=== PATIENT | female | born 1950 | race African-American/Black ===

== ENCOUNTER 2019-10-24 10:31 | Inpatient (IN) | payer OTHER ==
[~2019-10-24] VITALS: Ht 167.6 cm; Wt 78.9 kg
[2019-10-24 11:16] LABS: BG BASE EXCESS 0.8 mmol/L (-2.0-2.0); BG CARBOXYHEMOGLOBIN 0.6 % (0.5-1.5); BG DEOXYHEMOGLOBIN 6.4 % (0.0-5.0); BG FRACTION INSPIRED OXYGEN 100; BG HCO3 ACT 25.2 mmol/L (22.0-26.0); BG METHEMOGLOBIN 0.3 % (0.0-1.5); BG OXYGEN SATURATION 93.5 % (92.0-98.5); BG OXYHEMOGLOBIN 92.7 % (94.0-97.0); BG PCO2 39.7 mmHg (35.0-45.0); BG PH 7.421 (7.350-7.450); BG PO2 67.1 mmHg (75.0-100.0); BG SAMPLE SITE RIGHT BRACHIAL; BG TOTAL HEMOGLOBIN 12.3 g/dL (12.0-18.0); BG VENT MODE MASK - NRB
[2019-10-24 11:54] LABS: HEMATOCRIT. 36.9 % (36.0-48.0); MEAN CORPUSCULAR HEMOGLOBIN 28.9 pg (28.0-32.0); MEAN PLATELET VOLUME 8.9 fl (7.4-10.4); PLATELET 314 x1000/uL (130-400); RED BLOOD CELL COUNT 4.14 mill/uL (4.2-5.4); RED CELL DISTRIBUTION WIDTH 15.7 % (11.6-14.6)
[2019-10-24 12:32] LABS: PLATELET ESTIMATE NORMAL
[2019-10-24] MEDS ORDERED: PIPERACILLIN/TAZ 3.375G PREMIX 50 ML IV ONE (12:45)
[2019-10-24] MEDS ORDERED: VANCOMYCIN 1 G PREMIX 200 ML IV ONE (12:45)
[2019-10-24] MEDS ORDERED: ONDANSETRON HCL 4MG/2ML INJ IV PRN ×2 (13:15→17:15)
[2019-10-24] MEDS ORDERED: ACETAMINOPHEN 325MG TABLET PO PRN ×2 (13:15→17:15)
[2019-10-24 13:18] LABS: CHLORIDE 107 mEq/L (98-107)
[2019-10-24 13:23] LABS: D-DIMER 2.34 mg/L FEU (<0.50); INR 1.1; PROTHROMBIN TIME 11.1 sec (9.6-11.0)
[2019-10-24 13:26] LABS: CREATINE KINASE 933 IU/L (26-192)
[2019-10-24 13:33] LABS: FIBRINOGEN > 900 mg/dL (200-400)
[2019-10-24] MEDS ORDERED: DEXAMETHASONE 4MG TABLET PO SCH (14:00)
[2019-10-24] MEDS ORDERED: BENZONATATE 200MG CAPSULE PO NR (14:00)
[2019-10-24] MEDS ORDERED: CEFTRIAXONE 1 G PREMIX 50 ML IV SCH (14:00)
[2019-10-24] MEDS ORDERED: ENOXAPARIN 100MG/ML SYR SUBCUT SCH (15:00)
[2019-10-24] MEDS ORDERED: AZITHROMYCIN 250 MG TABLET PO SCH (16:00)
[2019-10-24 16:07] VITALS: BP_SYST 133
[2019-10-24 16:28] VITALS: BP 117/80
[2019-10-24 16:36] VITALS: BP 122/65
[2019-10-24] MEDS: ENOXAPARIN 100MG/ML SYR SUBCUT SCH (17:20)
[2019-10-24] MEDS: AZITHROMYCIN 250 MG TABLET PO SCH (17:22)
[2019-10-24] MEDS: CEFTRIAXONE 1,000 MG in DEXTROSE 5% WATER 50 ML IV SCH (17:48)
[2019-10-24] MEDS: METHYLPREDNISOLONE SOD SUCC 125 MG/2 ML VIAL IV SCH (17:49)
[2019-10-24] MEDS ORDERED: ALLO100T PO (17:54)
[2019-10-24] MEDS ORDERED: LISI10TA5 PO (17:54)
[2019-10-24] MEDS: ALBUTEROL 6.7GM HFA INHALER ORI SCH (18:00)
[2019-10-24] MEDS ORDERED: METHYLPREDNISOLONE SOD SUCC 125 MG/2 ML VIAL IV SCH (18:00)
[2019-10-24 20:00] VITALS: BP 124/84
[2019-10-24 23:39] LABS: CLARITY URINE CLOUDY (CLEAR); COLOR URINE DARK YELLOW (YELLOW); KETONES URINE TRACE (NEGATIVE); LEUKOCYTE ESTERASE URINE TRACE (NEGATIVE); NITRITE URINE NEGATIVE (NEGATIVE); OCCULT BLOOD URINE 1+ (NEGATIVE); PROTEIN URINE 4+ (NEGATIVE); SPECIFIC GRAVITY URINE 1.036 (1.005-1.030)
[2019-10-24 23:58] LABS: *AMPHETAMINES SCREEN URINE NEGATIVE (NEGATIVE); *BARBITURATES SCREEN URINE NEGATIVE (NEGATIVE); *BENZODIAZEPINES SCREEN URINE NEGATIVE (NEGATIVE); *COCAINE SCREEN URINE NEGATIVE (NEGATIVE); METHADONE URINE SCREEN NEGATIVE (NEGATIVE)
[2019-10-24 23:59] LABS: CANNABINOID URINE SCREEN NEGATIVE (NEGATIVE); OPIATES URINE SCREEN NEGATIVE (NEGATIVE); PHENCYCLIDINE URINE SCREEN NEGATIVE (NEGATIVE)
[2019-10-25] VITALS: BP 110/80
[2019-10-25] MEDS: ALBUTEROL 6.7GM HFA INHALER ORI SCH ×5 (01:34→23:01)
[2019-10-25] MEDS: METHYLPREDNISOLONE SOD SUCC 125 MG/2 ML VIAL IV SCH ×5 (01:34→23:01)
[2019-10-25 04:00] VITALS: BP 114/66
[2019-10-25] MEDS: ENOXAPARIN 100MG/ML SYR SUBCUT SCH (06:08)
[2019-10-25 08:00] VITALS: BP 113/56
[2019-10-25] MEDS: AZITHROMYCIN 250 MG TABLET PO SCH (08:50)
[2019-10-25 12:00] VITALS: BP 136/92
[2019-10-25] MEDS ORDERED: CEFTRIAXONE 1,000 MG in DEXTROSE 5% WATER 50 ML IV SCH (14:00)
[2019-10-25 16:49] VITALS: BP 133/86
[2019-10-25] MEDS: ENOXAPARIN 80MG/0.8ML SYR SUBCUT SCH (17:24)
[2019-10-25] MEDS: CEFTRIAXONE 1,000 MG in DEXTROSE 5% WATER 50 ML IV SCH (17:24)
[2019-10-25 20:00] VITALS: BP 128/88
[2019-10-26] VITALS: BP 144/90
[2019-10-26 04:00] VITALS: BP 132/88
[2019-10-26] MEDS: ALBUTEROL 6.7GM HFA INHALER ORI SCH ×4 (05:13→23:12)
[2019-10-26] MEDS: METHYLPREDNISOLONE SOD SUCC 125 MG/2 ML VIAL IV SCH ×4 (05:13→23:11)
[2019-10-26] MEDS: ENOXAPARIN 80MG/0.8ML SYR SUBCUT SCH ×2 (05:13→17:12)
[2019-10-26 08:00] VITALS: BP 122/82
[2019-10-26] MEDS: AZITHROMYCIN 250 MG TABLET PO SCH (08:44)
[2019-10-26 12:00] VITALS: BP 122/95
[2019-10-26 13:08] LABS: BG BASE EXCESS 3.1 mmol/L (-2.0-2.0); BG CARBOXYHEMOGLOBIN 0.3 % (0.5-1.5); BG DEOXYHEMOGLOBIN 1.5 % (0.0-5.0); BG FRACTION INSPIRED OXYGEN 100; BG METHEMOGLOBIN 0.2 % (0.0-1.5); BG OXYGEN SATURATION 98.5 % (92.0-98.5); BG PCO2 43.6 mmHg (35.0-45.0); BG PH 7.425 (7.350-7.450); BG PO2 142.5 mmHg (75.0-100.0); BG SAMPLE SITE RIGHT RADIAL; BG TOTAL HEMOGLOBIN 12.2 g/dL (12.0-18.0); BG VENT MODE MASK - NRB
[2019-10-26 16:00] VITALS: BP 146/89
[2019-10-26] MEDS: FLUCONAZOLE 100MG TABLET PO SCH (17:12)
[2019-10-26] MEDS: CEFTRIAXONE 1,000 MG in DEXTROSE 5% WATER 50 ML IV SCH (17:12)
[2019-10-26 20:00] VITALS: BP 155/95
[2019-10-26 20:36] LABS: HEMOGLOBIN. 11.4 g/dL (12.0-16.0); MEAN CORPUSCULAR HEMOGLOBIN 28.2 pg (28.0-32.0); MEAN CORPUSCULAR VOLUME 89.1 fL (81.0-99.0); MEAN PLATELET VOLUME 8.7 fl (7.4-10.4); PLATELET 475 x1000/uL (130-400); RED BLOOD CELL COUNT 4.03 mill/uL (4.2-5.4); RED CELL DISTRIBUTION WIDTH 15.7 % (11.6-14.6)
[2019-10-26 21:05] LABS: CHLORIDE 108 mEq/L (98-107)
[2019-10-26 22:33] LABS: ATYPICAL LYMPHOCYTES 2; NUCLEATED RED BLOOD CELLS 2 /100 WBC; PLATELET ESTIMATE INCREASED
[2019-10-26] MEDS ORDERED: GUAIFENESIN-DM 200MG-20MG/10ML UDC PO PRN (23:45)
[2019-10-27 00:20] VITALS: BP 150/95
[2019-10-27 04:00] VITALS: BP 144/95
[2019-10-27] MEDS: METHYLPREDNISOLONE SOD SUCC 125 MG/2 ML VIAL IV SCH (05:01)
[2019-10-27] MEDS: ALBUTEROL 6.7GM HFA INHALER ORI SCH ×4 (05:01→23:50)
[2019-10-27] MEDS: ENOXAPARIN 80MG/0.8ML SYR SUBCUT SCH ×2 (05:02→17:24)
[2019-10-27 08:00] VITALS: BP 159/98
[2019-10-27] MEDS: AZITHROMYCIN 250 MG TABLET PO SCH (08:44)
[2019-10-27] MEDS: AMLODIPINE 10MG TABLET PO SCH (11:47)
[2019-10-27 12:00] VITALS: BP 148/85
[2019-10-27] MEDS: METHYLPREDNISOLONE SOD SUCC 40 MG/ML VIAL IV SCH ×2 (13:45→21:33)
[2019-10-27 16:00] VITALS: BP 151/92
[2019-10-27] MEDS: FLUCONAZOLE 100MG TABLET PO SCH (16:17)
[2019-10-27] MEDS: CEFTRIAXONE 1,000 MG in DEXTROSE 5% WATER 50 ML IV SCH (17:16)
[2019-10-27 20:00] VITALS: BP 145/93
[2019-10-28] VITALS: BP 146/85
[2019-10-28 04:00] VITALS: BP 170/106
[2019-10-28] MEDS: ENOXAPARIN 80MG/0.8ML SYR SUBCUT SCH ×2 (05:15→18:32)
[2019-10-28] MEDS: METHYLPREDNISOLONE SOD SUCC 40 MG/ML VIAL IV SCH (05:15)
[2019-10-28] MEDS: ALBUTEROL 6.7GM HFA INHALER ORI SCH ×3 (05:16→18:30)
[2019-10-28] MEDS ORDERED: CLONIDINE 0.1MG TABLET PO PRN (07:00)
[2019-10-28 08:00] VITALS: BP 156/90
[2019-10-28] MEDS: AZITHROMYCIN 250 MG TABLET PO SCH (08:36)
[2019-10-28] MEDS: AMLODIPINE 10MG TABLET PO SCH (08:36)
[2019-10-28 12:00] VITALS: BP 156/89
[2019-10-28] MEDS ORDERED: HYDRALAZINE HCL 100MG TABLET PO SCH ×2 (12:15→18:00)
[2019-10-28] MEDS ORDERED: REMDESIVIR 200 MG in SODIUM CHLORIDE 0.9% 250 ML IV ONE (12:30)
[2019-10-28] MEDS ORDERED: DEXAMETHASONE 2MG TABLET PO SCH (13:00)
[2019-10-28] MEDS ORDERED: COLCHICINE 0.6MG TABLET PO SCH (13:00)
[2019-10-28 16:00] VITALS: BP 147/89
[2019-10-28] MEDS: CEFTRIAXONE 1,000 MG in DEXTROSE 5% WATER 50 ML IV SCH (18:30)
[2019-10-28] MEDS: FLUCONAZOLE 100MG TABLET PO SCH (18:30)
[2019-10-29] MEDS ORDERED: REMDESIVIR 100 MG in SODIUM CHLORIDE 0.9% 250 ML IV SCH (12:30)
== END 2019-10-28 22:30 | disposition short-term general hospital (02) | DRG 871 ==
LOC: ER 10:31 → 7WST 13:11 → EDBEDREQ 13:20 → EDBEDREQSVC 13:20 → EDBEDREQTM 13:20 → ENRESERV 14:15 → ER 16:09
PROVIDERS: ADMIT Internal Medicine; ATTEND Internal Medicine
DX: A41.89 Other specified sepsis (principal); U07.1 COVID-19; J96.01 Acute respiratory failure with hypoxia; E43 Unspecified severe protein-calorie malnutrition; J12.89 Other viral pneumonia; D68.59 Other primary thrombophilia; M62.82 Rhabdomyolysis; E66.9 Obesity, unspecified; M10.9 Gout, unspecified; R74.0 Nonspecific elevation of levels of transaminase and lactic acid dehydrogenase [LDH]; M06.9 Rheumatoid arthritis, unspecified; Z80.3 Family history of malignant neoplasm of breast; Z82.49 Family history of ischemic heart disease and other diseases of the circulatory system; Z83.3 Family history of diabetes mellitus; Z68.28 Body mass index [BMI] 28.0-28.9, adult; Z88.2 Allergy status to sulfonamides
CPT/HCPCS: 36415; 36600; 71045; 80048; 80053; 80305; 81003; 82375; 82550; 82728; 82805; 83605; 83615; 84145; 84484; 84550; 85025; 85379; 85384; 86140; 93005; 99291; J0696; J1650; J2543; J2920; J2930; J3370; J7060; J8540; U0003-CS